=== PATIENT | male | born 1980 | race Caucasian/White ===

== ENCOUNTER 2018-07-28 11:22 | Emergency (ER) | payer OTHER ==
[2018-07-28 11:32] VITALS: BP 122/77
--- NOTE | 2018-07-28 11:47 | UC ---
FLU HPI - HPI Summary HPI Summary: Nurses's note: flu like sx x 2 days fever 101.3. Patient has diffuse myalgias. - History of Current Complaint Chief Complaint: UCGeneralIllness Stated Complaint: COUGH, AND ACHES Time Seen by Provider: 07/28/18 11:46 Pain Intensity: 7 - Allergy/Home Medications Allergies/Adverse Reactions: Allergies Allergy/AdvReac Type Severity Reaction Status Date / Time No Known Allergies Allergy Verified 07/28/18 11:33 Home Medications: Home Medications Atorvastatin* [Lipitor 40 MG*] 40 mg PO DAILY 07/28/18 [History Confirmed ] Clopidogrel TAB* [Plavix TAB*] 75 mg PO DAILY 07/28/18 [History Confirmed ] Ramipril 5 mg PO DAILY 07/28/18 [History Confirmed 07/28/18] PMH/Surg Hx/FS Hx/Imm Hx - Additional Past Medical History Additional PMH: Hx of [place] and stents probably secondary to ETOH addiction. Currently has increased cholesterol. Being treated with medication. Previously Healthy: Yes Cardiovascular History: Myocardial Infarction, Other - hyperlipidemia - Surgical History Surgical History: None - Family History Known Family History: Positive: Cardiac Disease - Social History Occupation: Employed Full-time - [employer] Alcohol Use: Occasionally Substance Use Type: None Smoking Status (MU): Heavy Every Day Tobacco Smoker Review of Systems All Other Systems Reviewed And Are Negative: Yes Constitutional: Positive: Fever, Chills, Fatigue Skin: Positive: Negative Eyes: Positive: Negative ENT: Positive: Negative Respiratory: Positive: Shortness Of Breath, Cough Cardiovascular: Positive: Negative Gastrointestinal: Positive: Negative Genitourinary: Positive: Negative Motor: Positive: Negative Neurovascular: Positive: Negative Musculoskeletal: Positive: Negative Neurological: Positive: Negative Psychological: Positive: Negative Is Patient Immunocompromised?: No Physical Exam Triage Information Reviewed: Yes Appearance: Ill-Appearing, Pain Distress Vital Signs: Initial Vital Signs Temp 101.3 F 07/28/18 11:30 Pulse 100 07/28/18 11:30 Resp 20 07/28/18 11:30 BP 122/77 07/28/18 11:30 Pulse Ox 98 07/28/18 11:30 Vital Signs Reviewed: Yes Eye Exam: Normal ENT Exam: Normal Dental Exam: Normal Neck exam: Normal Neck: Positive: 1 Respiratory Exam: Normal Respiratory: Positive: Chest non-tender, Lungs clear, Normal breath sounds Cardiovascular Exam: Normal Cardiovascular: Positive: RRR, Pulses Normal Abdominal Exam: Normal Abdomen Description: Positive: Nontender, No Organomegaly, Soft Musculoskeletal Exam: Normal Neurological Exam: Normal Psychological Exam: Normal Skin Exam: Normal Skin: Negative: Rashes Flu Course/Dx - Course Course Of Treatment: flu like sx x 2 days fever 101.3. Patient has diffuse myalgias. Examination shows no sign of pneumonia. Rapid flu is positive. Dx is influenza. Given Tamiflu and follow up instructions. - Differential Dx/Diagnosis Differential Diagnosis/HQI/PQRI: Influenza, Pneumonia, Upper Respiratory Infection Provider Diagnosis: Influenza Discharge - Sign-Out/Discharge Documenting (check all that apply): Patient Departure All imaging exams completed and their final reports reviewed: No Studies - Discharge Plan Condition: Stable Disposition: HOME Prescriptions: Oseltamivir CAP* [Tamiflu CAP*] 75 mg PO BID #10 cap Patient Education Materials: Influenza (DC) Forms: *Work Release Referrals: Bradley SHAW,Markus Mac [Primary Care Provider] - Additional Instructions: WE DISCUSSED: You have the flu. Go home and rest. Lots of warm fluids; tea and honey. Acetaminophen for temperature and discomfort. Vaporizer. [employer] the shower under the hot water. Follow up with your doctor in 2-3 days. Go to ED if temperature doesn't come down in 2 days or if you have any worsening symptoms. Start Tamiflu for 5 days. Recheck at any time for increased pain or difficulty breathing or swallowing. No work for 3 days. - Billing Disposition and Condition Condition: STABLE Disposition: Home
== END 2018-07-28 12:05 | disposition home or self-care (01) ==
LOC: UCEAST 11:22
DX: J10.1 Influenza due to other identified influenza virus with other respiratory manifestations (principal)
CPT/HCPCS: 99212; G0463